=== PATIENT | female | born 2000 | race Caucasian/White ===

== ENCOUNTER 2019-04-17 14:30 | Emergency (ER) | payer OTHER ==
[~2019-04-17] VITALS: Ht 152.4 cm; Wt 54.4 kg
[2019-04-17] MEDS ORDERED: AMOXICILLIN-CLAVUL 875-125MG TABLET PO ONE (15:15)
[2019-04-17] MEDS ORDERED: RABIES IMMUNE GLOBULIN/PF 300 UNIT/ML 2 ML VIAL IM ONE (15:15)
[2019-04-17] MEDS ORDERED: RABIES VACCINE (PCEC)/PF 2.5 UNIT ML IM ONE ×2 (15:15)
[2019-04-17] MEDS ORDERED: AMOXICILLIN-CLAVUL 875-125MG TABLET ONE (15:15)
--- NOTE | 2019-04-17 15:17 | NUR ---
Pt states, she spoke to the Vet and the cat that bit her tested negetive for Rabbies and been told no rabbies vaccine needed.
--- NOTE | 2019-04-17 15:23 | NUR ---
Patient discharged to home in stable conditon. Written and verbal after care instructions given. Patient verbalizes understanding of instructions.
[2019-04-17 15:24] VITALS: BP 121/61
== END 2019-04-17 15:27 | disposition home or self-care (01) ==
LOC: ER 14:30
DX: S61.451A Open bite of right hand, initial encounter (principal); W55.01XA Bitten by cat, initial encounter; Y93.89 Activity, other specified; Y92.89 Other specified places as the place of occurrence of the external cause; Y99.8 Other external cause status
CPT/HCPCS: A4217; A4663

== ENCOUNTER 2019-12-18 15:52 | Inpatient (IN) | payer OTHER ==
[~2019-12-18] VITALS: Ht 152.4 cm; Wt 54.4 kg
[2019-12-18] MEDS ORDERED: ONDANSETRON 4 MG/2 ML VIAL IV ONE (16:00)
[2019-12-18] MEDS ORDERED: IV NORMAL SALINE 1000 ML BAG IV ONE ×2 (16:00→18:15)
[2019-12-18] MEDS ORDERED: ONDANSETRON 4 MG/2 ML VIAL ONE (16:06)
[2019-12-18] MEDS ORDERED: LORAZEPAM 2 MG/1 ML VIAL IV ONE ×2 (16:15→18:30)
[2019-12-18] MEDS ORDERED: LORAZEPAM 2 MG/1 ML VIAL ONE ×2 (16:15→18:32)
[2019-12-18 16:21] LABS: BASOPHILS % (AUTO) 0.3 % (0.0-2.0); EOSINOPHILS % (AUTO) 0.1 % (0.0-7.0); HEMATOCRIT 45.9 % (31.2-41.9); HEMOGLOBIN 15.6 g/dL (10.9-14.3); LYMPHOCYTES # (AUTO) 2.6 K/uL (20.0-40.0); MEAN CORPUSCULAR HEMOGLOBIN 30.6 uug (24.7-32.8); MEAN CORPUSCULAR HGB CONC 34 g/dL (32.3-35.6); MEAN CORPUSCULAR VOLUME 90.3 fL (75.5-95.3); NEUTROPHILS # (AUTO) 10.2 K/uL (1.8-8.9); NEUTROPHILS % (AUTO) 73.6 % (38.5-71.5); PLATELET COUNT (AUTO) 337 K/uL (179-408); RED BLOOD CELL COUNT(AUTO) 5.08 MIL/uL (3.63-4.92); WHITE BLOOD COUNT (AUTO) 13.9 K/uL (3.8-11.8)
[2019-12-18 16:27] LABS: CREATININE 1.3 mg/dL (0.6-1.3); POTASSIUM 3.8 mmol/L (3.5-5.1)
[2019-12-18 16:33] LABS: BILIRUBIN,DIRECT 0.2 mg/dL (0.0-0.2); BILIRUBIN,TOTAL 0.9 mg/dL (0.2-1.0)
[2019-12-18] MEDS ORDERED: LIDOCAINE VISCUS 2% 15 ML UDC MM ONE (17:30)
[2019-12-18] MEDS: SUCRALFATE 1 G/10 ML LIQUID UDC GT SCH ×3 (17:33→22:56)
[2019-12-18] MEDS ORDERED: PROCHLORPERAZINE EDISYLATE 10 MG/2 ML VIAL IV ONE (18:30)
[2019-12-18] MEDS ORDERED: diphenhydrAMINE 50 MG/1 ML VIAL IV ONE (18:30)
[2019-12-18] MEDS ORDERED: PROCHLORPERAZINE EDISYLATE 10 MG/2 ML VIAL ONE (18:31)
[2019-12-18] MEDS ORDERED: diphenhydrAMINE 50 MG/1 ML VIAL ONE (18:31)
[2019-12-18] MEDS ORDERED: ACETAMINOPHEN 325 MG TABLET PO PRN (19:15)
[2019-12-18] MEDS: IV D5/ 0.9% NACL 1,000 ML IV PRN (22:37)
[2019-12-18 22:44] VITALS: BP 105/61
[2019-12-18] MEDS: LORAZEPAM 2 MG/1 ML VIAL IV PRN (23:12)
[2019-12-18] MEDS: ONDANSETRON 4 MG/2 ML VIAL IV PRN (23:13)
[2019-12-19 05:10] VITALS: BP 102/61
[2019-12-19] MEDS: IV D5/ 0.9% NACL 1,000 ML IV PRN ×3 (06:06→22:08)
[2019-12-19] MEDS: ONDANSETRON 4 MG/2 ML VIAL IV PRN (06:16)
[2019-12-19 06:18] LABS: BASOPHILS % (AUTO) 0.5 % (0.0-2.0); EOSINOPHILS # (AUTO) 0.1 K/uL (0.0-0.7); EOSINOPHILS % (AUTO) 0.9 % (0.0-7.0); HEMATOCRIT 35.5 % (31.2-41.9); HEMOGLOBIN 12.2 g/dL (10.9-14.3); LYMPHOCYTES # (AUTO) 3.1 K/uL (20.0-40.0); LYMPHOCYTES % (AUTO) 30.6 % (20.5-51.5); MEAN CORPUSCULAR HEMOGLOBIN 31.3 uug (24.7-32.8); MEAN CORPUSCULAR HGB CONC 34 g/dL (32.3-35.6); MEAN CORPUSCULAR VOLUME 91.1 fL (75.5-95.3); MONOCYTES # (AUTO) 0.8 K/uL (2.0-10.0); MONOCYTES % (AUTO) 7.5 % (0.0-11.0); NEUTROPHILS # (AUTO) 6.1 K/uL (1.8-8.9); NEUTROPHILS % (AUTO) 60.5 % (38.5-71.5); PLATELET COUNT (AUTO) 202 K/uL (179-408); WHITE BLOOD COUNT (AUTO) 10.1 K/uL (3.8-11.8)
[2019-12-19 06:37] LABS: CREATININE 0.9 mg/dL (0.6-1.3); PHOSPHOROUS 3.1 mg/dL (2.5-4.9); POTASSIUM 3.7 mmol/L (3.5-5.1)
[2019-12-19 06:40] LABS: THYROID STIMULATING HORMONE 1.197 mIU/mL (0.358-3.740)
[2019-12-19] MEDS ORDERED: SUCRALFATE 1 G/10 ML LIQUID UDC GT SCH (07:30)
[2019-12-19] MEDS: SUCRALFATE 1 G TABLET PO SCH ×4 (07:44→20:47)
[2019-12-19] MEDS: PROCHLORPERAZINE EDISYLATE 10 MG/2 ML VIAL IV PRN ×2 (11:14→19:51)
[2019-12-19 11:38] VITALS: BP 124/74
[2019-12-19] MEDS: LORAZEPAM 2 MG/1 ML VIAL IV PRN ×2 (14:14→20:48)
[2019-12-19 15:44] VITALS: BP 147/84
[2019-12-19 17:15] VITALS: BP 130/74
[2019-12-19 20:00] VITALS: BP 138/87
[2019-12-20] MEDS: LORAZEPAM 2 MG/1 ML VIAL IV PRN (01:58)
[2019-12-20 04:00] VITALS: BP 134/86
[2019-12-20] MEDS: PROCHLORPERAZINE EDISYLATE 10 MG/2 ML VIAL IV PRN (04:40)
[2019-12-20] MEDS: IV D5/ 0.9% NACL 1,000 ML IV PRN (06:03)
[2019-12-20] MEDS: SUCRALFATE 1 G TABLET PO SCH ×2 (07:49→11:08)
[2019-12-20] MEDS: ONDANSETRON 4 MG/2 ML VIAL IV PRN (08:53)
[2019-12-20 11:51] VITALS: BP 120/67
[2019-12-20] MEDS ORDERED: PANT40TA2 PO (11:57)
== END 2019-12-20 12:43 | disposition home or self-care (01) | DRG 395 ==
LOC: ER 15:54 → MEDSURG3 22:17
DX: R11.15 Cyclical vomiting syndrome unrelated to migraine (principal); K21.9 Gastro-esophageal reflux disease without esophagitis; N28.9 Disorder of kidney and ureter, unspecified; E83.52 Hypercalcemia; D72.829 Elevated white blood cell count, unspecified
CPT/HCPCS: 36415; 83690; 83735; 84100; 84443; 85025; A4663; G0378; J0780; J1200; J2060; J2405; J3490; J7030; J7042

== ENCOUNTER 2020-02-29 17:25 | Emergency (ER) | payer OTHER ==
[~2020-02-29] VITALS: Ht 154.9 cm; Wt 49.9 kg
[~2020-02-29 17:25] MED LIST: PANT40TA2 PO
[2020-02-29] MEDS ORDERED: IV NORMAL SALINE 1000 ML BAG IV ONE (17:45)
[2020-02-29] MEDS ORDERED: HYDROMORPHONE 1 MG/1 ML DISP.SYRIN IV ONE (17:45)
[2020-02-29] MEDS ORDERED: ONDANSETRON 4 MG/2 ML VIAL IV ONE ×2 (17:45→19:00)
[2020-02-29] MEDS ORDERED: HYDROMORPHONE 1 MG/1 ML DISP.SYRIN ONE (17:53)
[2020-02-29] MEDS ORDERED: ONDANSETRON 4 MG/2 ML VIAL ONE ×2 (17:53→19:00)
[2020-02-29 18:01] LABS: BASOPHILS % (AUTO) 0.3 % (0.0-2.0); EOSINOPHILS % (AUTO) 0.1 % (0.0-7.0); HEMATOCRIT 43.6 % (31.2-41.9); HEMOGLOBIN 14.9 g/dL (10.9-14.3); LYMPHOCYTES # (AUTO) 2.5 K/uL (20.0-40.0); LYMPHOCYTES % (AUTO) 18.1 % (20.5-51.5); MEAN CORPUSCULAR HEMOGLOBIN 31.2 uug (24.7-32.8); MEAN CORPUSCULAR HGB CONC 34 g/dL (32.3-35.6); MEAN CORPUSCULAR VOLUME 90.9 fL (75.5-95.3); MONOCYTES # (AUTO) 0.8 K/uL (2.0-10.0); MONOCYTES % (AUTO) 5.6 % (0.0-11.0); NEUTROPHILS # (AUTO) 10.4 K/uL (1.8-8.9); NEUTROPHILS % (AUTO) 75.9 % (38.5-71.5); PLATELET COUNT (AUTO) 279 K/uL (179-408); WHITE BLOOD COUNT (AUTO) 13.8 K/uL (3.8-11.8)
[2020-02-29 18:03] LABS: CARBON DIOXIDE 24 mmol/L (21-32); CHLORIDE 102 mmol/L (98-107); CREATININE 0.9 mg/dL (0.6-1.3); GLUCOSE 116 mg/dL (74-106); POTASSIUM 3.8 mmol/L (3.5-5.1); UREA NITROGEN, BLOOD 20 mg/dL (7-18)
[2020-02-29 18:09] LABS: ALANINE AMINOTRANSFERASE 19 U/L (14-59); ALKALINE PHOSPHATASE 71 U/L (50-136); ASPARTATE AMINOTRANSFERASE 18 U/L (15-37); BILIRUBIN,DIRECT 0.2 mg/dL (0.0-0.2); BILIRUBIN,TOTAL 1.1 mg/dL (0.2-1.0); LIPASE 95 U/L (73-393); TOTAL PROTEIN, SERUM 8.6 g/dL (6.4-8.2)
[2020-02-29] MEDS ORDERED: PANTOPRAZOLE SODIUM 40 MG VIAL IV ONE (18:15)
[2020-02-29] MEDS ORDERED: PANTOPRAZOLE SODIUM 40 MG VIAL ONE (18:16)
[2020-02-29 19:11] VITALS: BP 144/82
[2020-03-01] MEDS ORDERED: MEDR150D7 IM (09:29)
[2020-03-05] MEDS ORDERED: METR500T PO (11:10)
[2020-03-05] MEDS ORDERED: ACID1TAB4 PO (11:10)
[2020-03-05] MEDS ORDERED: CIPR-262 PO (11:10)
== END 2020-02-29 19:24 | disposition home or self-care (01) ==
LOC: ER 17:25
DX: R11.15 Cyclical vomiting syndrome unrelated to migraine (principal); K58.9 Irritable bowel syndrome, unspecified; K21.9 Gastro-esophageal reflux disease without esophagitis
CPT/HCPCS: 36415; 80048; 80076; 83690; 84702; 85025; 96361; 96374; 96375; 96376; 99284; C9113; J1170; J2405 ×2; A4663; J7030

== ENCOUNTER 2020-03-01 02:11 | Inpatient (IN) | payer OTHER ==
[~2020-03-01] VITALS: Ht 152.4 cm; Wt 54.9 kg
--- NOTE | 2020-03-01 02:30 | NUR ---
Patient ambulated with stable gait. Speech is clear, speaks in complete sentences. No acute neuro deficits noted. Patient came for c/o non-radiating mid-abdominal pain and n/v. Patient was just seen earlier, and was d/c home with an Rx that she failed to fill. Respiratory even and unlabored, no cough no sob. No cardiovascular distress noted, denies any cp, or palpitations. Denies any gu distress, no pyuria, hematuria, or increased frequency. Patient does report having a long history of cannabis use by "dabbing". "It essentially is smoking THC concentrate per patient." She states that she has quit smoking cannabis x3 months now and has not smoked since. Patient report having occasional relief by taking "hot showers".
[2020-03-01] MEDS ORDERED: ONDANSETRON 4 MG/2 ML VIAL ONE (02:36)
[2020-03-01] MEDS ORDERED: PANTOPRAZOLE SODIUM 40 MG VIAL ONE (02:36)
[2020-03-01] MEDS ORDERED: IV NORMAL SALINE 1000 ML BAG IV ONE ×2 (02:45→04:00)
[2020-03-01] MEDS ORDERED: ONDANSETRON 4 MG/2 ML VIAL IV ONE (02:45)
[2020-03-01] MEDS ORDERED: PANTOPRAZOLE SODIUM 40 MG VIAL IV ONE (02:45)
[2020-03-01 02:47] LABS: BASOPHILS # (AUTO) 0.1 K/uL (0.0-8.0); BASOPHILS % (AUTO) 0.6 % (0.0-2.0); EOSINOPHILS # (AUTO) 0.2 K/uL (0.0-0.7); EOSINOPHILS % (AUTO) 1.3 % (0.0-7.0); HEMATOCRIT 41.7 % (31.2-41.9); HEMOGLOBIN 14.3 g/dL (10.9-14.3); LYMPHOCYTES # (AUTO) 3.7 K/uL (20.0-40.0); LYMPHOCYTES % (AUTO) 26.8 % (20.5-51.5); MEAN CORPUSCULAR HGB CONC 34 g/dL (32.3-35.6); MEAN CORPUSCULAR VOLUME 90.4 fL (75.5-95.3); MONOCYTES # (AUTO) 0.9 K/uL (2.0-10.0); MONOCYTES % (AUTO) 6.8 % (0.0-11.0); NEUTROPHILS % (AUTO) 64.5 % (38.5-71.5); PLATELET COUNT (AUTO) 268 K/uL (179-408); RED BLOOD CELL COUNT(AUTO) 4.61 MIL/uL (3.63-4.92)
[2020-03-01 02:50] LABS: CREATININE 1.1 mg/dL (0.6-1.3); POTASSIUM 3.7 mmol/L (3.5-5.1)
[2020-03-01 02:56] LABS: BILIRUBIN,DIRECT 0.2 mg/dL (0.0-0.2); TOTAL PROTEIN, SERUM 7.9 g/dL (6.4-8.2)
[2020-03-01] MEDS ORDERED: MORPHINE SULFATE 4 MG/1 ML DISP.SYRIN IV ONE (04:00)
[2020-03-01] MEDS ORDERED: METOCLOPRAMIDE HCL 10 MG/2 ML VIAL IV ONE (04:00)
[2020-03-01] MEDS ORDERED: diphenhydrAMINE 50 MG/1 ML VIAL IV ONE (04:00)
[2020-03-01] MEDS ORDERED: diphenhydrAMINE 50 MG/1 ML VIAL ONE (04:03)
[2020-03-01] MEDS ORDERED: MORPHINE SULFATE 4 MG/1 ML DISP.SYRIN ONE (04:04)
[2020-03-01] MEDS ORDERED: METOCLOPRAMIDE HCL 10 MG/2 ML VIAL ONE (04:04)
--- NOTE | 2020-03-01 04:15 | NUR ---
COVID SWAB SENT TO LAB, lab stated that barrel bander will be able to metal pickling equipment operator specimen in about an hour and a half.
--- NOTE | 2020-03-01 05:02 | NUR ---
Patient in bed VSS, NAD will continue to monitor as the COVID results are pending.
--- NOTE | 2020-03-01 06:17 | NUR ---
Santos Johnson, [facility] has been paged awaiting call back. Lab states that the snack bar cashier had just picked up the specimen at this time and needs to be transported back to [facility] for processing.
--- NOTE | 2020-03-01 06:40 | NUR ---
Report given to ENE Sellers. Awaiting for [facility] provider for admission. Will endorse to day shift POCKET CLOSER. Pending COVID results as well.
--- NOTE | 2020-03-01 07:00 | NUR ---
Report given to ENE Burris for continuity of care.
--- NOTE | 2020-03-01 07:22 | NUR ---
1st contact with patient: AOX4, calm & breathing easily, resting on gurney with eyes closed , pending accepting MD/IMMIGRATION CASE MANAGER for admission to medical surgical floor, room 330. Safety and comfort measures maintained.
--- NOTE | 2020-03-01 09:00 | NUR ---
ADMITTED FROM HOME VIA ER A 20 YO FEMALE WITH C/O ABDOMINAL PAIN , N/V WITH ADM DX ACUTE PANCREATITIS AND LEUKOCYTOSIS. NO SIGNS OF DISTRESS. INITIAL ADM ASSESSMENT INITIATED, JEAN GRIFFITH IN AND EXAMINED PATIENT WITH ORDERS. CONTINUE MED/SURG OBSERVATION
[2020-03-01 09:28] VITALS: BP 123/69
[2020-03-01] MEDS ORDERED: MEDR150D7 IM (09:29)
[2020-03-01] MEDS ORDERED: MAGNESIUM HYDROXIDE 30 ML LIQUID UDC PO PRN (09:45)
[2020-03-01] MEDS ORDERED: ACETAMINOPHEN 325 MG TABLET PO PRN (09:45)
[2020-03-01] MEDS ORDERED: Z GUARD REMEDY PASTE 57 GM TUBE TOP PRN (09:45)
[2020-03-01] MEDS ORDERED: LORAZEPAM 2 MG/1 ML VIAL IV PRN (09:45)
[2020-03-01] MEDS ORDERED: ZOLPIDEM 5 MG TABLET PO PRN (09:45)
[2020-03-01] MEDS ORDERED: INSULIN REGULAR, HUMAN 300 UNIT/3 ML VIAL SQ PRN (10:00)
[2020-03-01] MEDS ORDERED: DEXTROSE 50% 50 ML DISP.SYRIN IV PRN (10:00)
[2020-03-01] MEDS: ONDANSETRON 4 MG/2 ML VIAL IV PRN ×2 (11:30→20:48)
[2020-03-01] MEDS: IV NS 1000 ML 1,000 ML IV PRN ×2 (11:31→17:21)
[2020-03-01] MEDS: THIAMINE HCL INJ 100 MG in IV DEXTROSE 5% 50 ML IV SCH (11:38)
[2020-03-01] MEDS: HYDROMORPHONE 1 MG/1 ML DISP.SYRIN IV PRN (11:39)
[2020-03-01] MEDS: BLOOD SUGAR DIAGNOSTIC 1 EACH STRIP VI SCH ×3 (11:51→23:49)
[2020-03-01 16:00] VITALS: BP 117/72
--- NOTE | 2020-03-01 18:01 | NUR ---
CONTINUE NPO AND IVF 125MLS/HR, CONTINUE PAIN MGT PRN. NO FURTHER NAUSEA AND VOMITING. AMBULATES WITHIN HER ROOM. FALL PRECAUTION ADVICED
--- NOTE | 2020-03-01 19:45 | NUR ---
Patient alert oriented, no sob no chest pain. Patient has episode of nausea, and abdominal pain, will medicate patient as ordered. Patient remain npo, cont to monitor blood sugar. cont to monitor.
[2020-03-01 20:12] VITALS: BP 116/69
[2020-03-01] MEDS: PANTOPRAZOLE SODIUM 40 MG VIAL IV SCH (20:40)
[2020-03-02] MEDS: HYDROMORPHONE 1 MG/1 ML DISP.SYRIN IV PRN ×3 (00:55→23:39)
[2020-03-02] MEDS: IV NS 1000 ML 1,000 ML IV PRN ×2 (01:06→08:48)
[2020-03-02 04:16] VITALS: BP 110/72
--- NOTE | 2020-03-02 04:30 | NUR ---
Patient asleep, cont on pain management due to abdominal pain. Patient has no further episode of nausea. Patient remain npo, cont to monitor.
[2020-03-02] MEDS: ONDANSETRON 4 MG/2 ML VIAL IV PRN ×4 (05:34→23:39)
[2020-03-02] MEDS: BLOOD SUGAR DIAGNOSTIC 1 EACH STRIP VI SCH ×4 (05:38→23:53)
[2020-03-02 07:22] LABS: BASOPHILS # (AUTO) 0.1 K/uL (0.0-8.0); BASOPHILS % (AUTO) 0.6 % (0.0-2.0); EOSINOPHILS # (AUTO) 0.3 K/uL (0.0-0.7); EOSINOPHILS % (AUTO) 3.2 % (0.0-7.0); HEMATOCRIT 39.1 % (31.2-41.9); HEMOGLOBIN 13.6 g/dL (10.9-14.3); LYMPHOCYTES # (AUTO) 4.2 K/uL (20.0-40.0); LYMPHOCYTES % (AUTO) 42.4 % (20.5-51.5); MEAN CORPUSCULAR HEMOGLOBIN 31.3 uug (24.7-32.8); MEAN CORPUSCULAR HGB CONC 35 g/dL (32.3-35.6); MEAN CORPUSCULAR VOLUME 89.6 fL (75.5-95.3); MONOCYTES # (AUTO) 0.6 K/uL (2.0-10.0); MONOCYTES % (AUTO) 6.2 % (0.0-11.0); NEUTROPHILS # (AUTO) 4.7 K/uL (1.8-8.9); NEUTROPHILS % (AUTO) 47.6 % (38.5-71.5); PLATELET COUNT (AUTO) 198 K/uL (179-408); RED BLOOD CELL COUNT(AUTO) 4.36 MIL/uL (3.63-4.92); WHITE BLOOD COUNT (AUTO) 9.9 K/uL (3.8-11.8)
[2020-03-02 07:26] LABS: BILIRUBIN,TOTAL 1.1 mg/dL (0.2-1.0); CREATININE 0.9 mg/dL (0.6-1.3); PHOSPHOROUS 3.4 mg/dL (2.5-4.9); POTASSIUM 3.2 mmol/L (3.5-5.1); TOTAL PROTEIN, SERUM 6.8 g/dL (6.4-8.2)
--- NOTE | 2020-03-02 08:30 | NUR ---
RECEIVED PATIENT AWAKE, ALERT IN BED, ORIENTED X 4. VSS. NO S/S OF SOB OR DISTRESS. ABLE TO AMBULATE TO THE RESTROOM. COMPLAINTS OF ABDOMINAL PAIN AND SLIGHT NAUSEA. DENIES VOMITING AT THIS TIME. PATIENT REMAINS NPO. IV ON L AC 20 G, FLUSHED AND PATENT. NS RUNNING AT 125 CC/HR. WILL CONTINUE TO MONITOR.
[2020-03-02] MEDS: PANTOPRAZOLE SODIUM 40 MG VIAL IV SCH ×2 (08:48→20:04)
--- NOTE | 2020-03-02 11:30 | NUR ---
BLOOD GLUCOSE CHECKED: 64. HYPOGLYCEMIC PROTOCOL INITIATED. PATIENT GIVEN APPLE JUICE. PATIENT REPORTS NAUSEA AFTER A SIP OF APPLE JUICE. MD NOTIFIED.
--- NOTE | 2020-03-02 11:45 | NUR ---
RECHECKED BLOOD GLUCOSE: 69. NS 1000 ML DISCONTINUED. D5NS STARTED INFUSING. DENIES DIZZINESS.
--- NOTE | 2020-03-02 12:00 | NUR ---
RECHECKED BLOOD GLUCOSE: 81. NOTIFIED OF BLOOD GLUCOSE WNL. PATIENT UNABLE TO TOLERATE CLEAR LIQUID WITHOUT FEELING NAUSEOUS. WILL CONTINUE TO MONITOR.
[2020-03-02 12:07] VITALS: BP 123/75
[2020-03-02] MEDS: THIAMINE HCL INJ 100 MG in IV DEXTROSE 5% 50 ML IV SCH (12:08)
[2020-03-02] MEDS: IV D5/ 0.9% NACL 1,000 ML IV PRN ×2 (12:40→23:00)
[2020-03-02] MEDS: POTASSIUM CHLORIDE 50 ML IV SCH ×4 (13:36→16:44)
--- NOTE | 2020-03-02 15:17 | NUR ---
MIDLINE INSERTION COMPLETED, PATIENT TOLERATED WELL
[2020-03-02 16:53] VITALS: BP 105/60
--- NOTE | 2020-03-02 17:50 | NUR ---
BLOOD GLUCOSE CHECK: 64 - HYPOGLYCEMIC PROTOCOL INITIATED. PATIENT VERBALIZES DIZZINESS AND NAUSEA. GIVEN ZOFRAN AND D50. WILL RECHECK BLOOD GLUCOSE IN 15 MINS.
--- NOTE | 2020-03-02 18:20 | NUR ---
BLOOD GLUCOSE RECHECK: 210. VERBALIZED IMPROVEMENT OF NAUSEA AND DIZZINESS.
--- NOTE | 2020-03-02 19:45 | NUR ---
Patient alert oriented, no sob no chest pain. Patient has no complain of pain at this time, no nausea no vomiting noted, r upper midline intact, patient unable to tolerate clear liquid diet, encourage to stop taking po fluids at this time, cont to monitor.
[2020-03-02 20:21] VITALS: BP 104/54
[2020-03-03] MEDS: IV D5/ 0.9% NACL 1,000 ML IV PRN ×3 (02:33→22:44)
[2020-03-03 05:20] VITALS: BP 112/80
--- NOTE | 2020-03-03 05:29 | NUR ---
Patient asleep but arousable, no sob no chest pain. Patient on cont pain management due abdominal pain. Patient also given zofran for episode of nausea. Patient blood sugar stable at this time. cont to monitor.
[2020-03-03 06:25] LABS: CREATININE 0.9 mg/dL (0.6-1.3); POTASSIUM 3.9 mmol/L (3.5-5.1)
[2020-03-03] MEDS: BLOOD SUGAR DIAGNOSTIC 1 EACH STRIP VI SCH ×4 (06:36→21:01)
--- NOTE | 2020-03-03 08:00 | NUR ---
PT alert and oriented x 4. Pt states she had x 2 loose yellow diarrhea. Pt is in no acute distress. Discussed plan of care with pt for nausea and vomiting with zofran. Pt c/o being nauseated will give Zofran for nausea as needed.
[2020-03-03] MEDS: PANTOPRAZOLE SODIUM 40 MG VIAL IV SCH ×2 (09:04→20:44)
[2020-03-03] MEDS: ONDANSETRON 4 MG/2 ML VIAL IV PRN ×2 (10:19→18:07)
[2020-03-03] MEDS: THIAMINE HCL INJ 100 MG in IV DEXTROSE 5% 50 ML IV SCH (12:17)
[2020-03-03 12:30] VITALS: BP 117/75
[2020-03-03] MEDS ORDERED: ERYTHROMYCIN LACTOBIONATE IV SCH (14:00)
[2020-03-03] MEDS ORDERED: METOCLOPRAMIDE HCL 10 MG/2 ML VIAL IV SCH (14:00)
[2020-03-03] MEDS ORDERED: NORMAL SALINE IV SCH (14:00)
[2020-03-03] MEDS: AZITHROMYCIN IV 250 MG in IV DEXTROSE 5% 250 ML IV SCH (15:01)
--- NOTE | 2020-03-03 18:17 | NUR ---
Pt started on clear liquid. Will monitor pt for n/v. Pt given zofran throughout shift for nausea. Midline intact on right brachial.
[2020-03-03 19:14] VITALS: BP 109/64
--- NOTE | 2020-03-03 20:00 | NUR ---
Received patient in bed, awake, alert, and verbally responsive. No s/s of acute distress. Pt on RA and denies SOB. Right upper arm midline patent and intact infusing ordered fluids. Pt c/o nausea and will administer medication per order. Safety precautions in place and will continue to monitor.
--- NOTE | 2020-03-03 20:30 | NUR ---
Per Karmen Chavez, CRYPTOLOGIC TECHNICIAN changed Accu check order to [facility]CHS at 2022
[2020-03-03] MEDS: METOCLOPRAMIDE HCL 10 MG/2 ML VIAL IV SCH (20:43)
[2020-03-03 20:52] VITALS: BP 117/55
[2020-03-04] MEDS ORDERED: INSULIN REGULAR, HUMAN 300 UNIT/3 ML VIAL SQ PRN (04:15)
[2020-03-04] MEDS ORDERED: DEXTROSE 50% 50 ML DISP.SYRIN IV PRN (04:15)
[2020-03-04] MEDS: ONDANSETRON 4 MG/2 ML VIAL IV PRN (05:26)
[2020-03-04 05:31] VITALS: BP 110/64
[2020-03-04] MEDS: BLOOD SUGAR DIAGNOSTIC 1 EACH STRIP VI SCH ×4 (06:34→21:43)
[2020-03-04] MEDS: IV D5/ 0.9% NACL 1,000 ML IV PRN (06:36)
--- NOTE | 2020-03-04 08:30 | NUR ---
RECEIVED PATIENT AWAKE, ALERT IN BED AND ORIENTED X 4. VSS. ON CLEAR LIQUID DIET, ABLE TO TOLERATE, STILL COMPLAINS OF MILD NAUSEA AT THIS TIME, DENIES EMESIS. ALSO DIARRHEA X 2. WILL MANAGE NAUSEA WITH ZOFRAN AND REGLAN. MIDLINE ON RIGHT UPPER ARM, FLUSHED AND PATENT. D5NS RUNNING ORDERED. WILL CONTINUE TO MONITOR.
[2020-03-04] MEDS: METOCLOPRAMIDE HCL 10 MG/2 ML VIAL IV SCH ×3 (08:53→17:11)
[2020-03-04] MEDS: PANTOPRAZOLE SODIUM 40 MG VIAL IV SCH ×2 (08:53→20:34)
[2020-03-04 11:36] VITALS: BP 115/67
[2020-03-04] MEDS: THIAMINE HCL INJ 100 MG in IV DEXTROSE 5% 50 ML IV SCH (11:40)
[2020-03-04] MEDS ORDERED: ONDANSETRON 4 MG/2 ML VIAL IV PRN (13:00)
--- NOTE | 2020-03-04 15:00 | NUR ---
RECEIVED PATIENT. AWAKE, ALERT & ORIENTED. VERY FRUSTRATED THAT DR. BUTTS HAS NOT BEEN HERE FOR GI CONSULT. EMOTIONAL SUPPORT.
[2020-03-04 16:00] VITALS: BP 113/64
[2020-03-04] MEDS: AZITHROMYCIN IV 250 MG in IV DEXTROSE 5% 250 ML IV SCH (17:11)
[2020-03-04] MEDS: ACIDOPHILUS/BULGARICUS CHEW TAB PO SCH ×2 (17:11→21:58)
[2020-03-04] MEDS: HYDROCODONE/APAP 5-325MG TABLET PO PRN ×2 (17:21→21:59)
--- NOTE | 2020-03-04 20:00 | NUR ---
RECEIVED PATIENT AWAKE IN BED. A/O X4. IVF INFUSING WELL TO RIGHT UPPER ARM, MID-LINE. VSS. DENIES ANY PAIN OR DISCOMFORT. DENIES ANY NAUSEA. CALL LIGHT IN REACH. ALL NEEDS ATTENDED. WILL CONTINUE TO MONITOR AND ASSESS.
[2020-03-04 20:57] VITALS: BP 115/76
[2020-03-05] MEDS: IV D5/ 0.9% NACL 1,000 ML IV PRN (02:27)
[2020-03-05] MEDS: BLOOD SUGAR DIAGNOSTIC 1 EACH STRIP VI SCH ×2 (02:40→06:37)
[2020-03-05] MEDS: ACIDOPHILUS/BULGARICUS CHEW TAB PO SCH (05:49)
[2020-03-05 06:21] VITALS: BP 110/64
--- NOTE | 2020-03-05 06:54 | NUR ---
PATIENT AWAKE, SLEPT WELL. BED ALARM ON. CALL LIGHT IN REACH. ALL NEEDS ATTENDED. WILL CONTINUE TO MONITOR AND ASSESS.
[2020-03-05] MEDS: PANTOPRAZOLE SODIUM 40 MG VIAL IV SCH (08:25)
[2020-03-05] MEDS: METOCLOPRAMIDE HCL 10 MG/2 ML VIAL IV SCH (08:25)
[2020-03-05 10:21] LABS: BASOPHILS # (AUTO) 0.1 K/uL (0.0-8.0); BASOPHILS % (AUTO) 0.7 % (0.0-2.0); EOSINOPHILS # (AUTO) 0.5 K/uL (0.0-0.7); EOSINOPHILS % (AUTO) 6.3 % (0.0-7.0); HEMATOCRIT 40.8 % (31.2-41.9); HEMOGLOBIN 14.2 g/dL (10.9-14.3); LYMPHOCYTES # (AUTO) 2.4 K/uL (20.0-40.0); LYMPHOCYTES % (AUTO) 30.4 % (20.5-51.5); MEAN CORPUSCULAR HEMOGLOBIN 31.3 uug (24.7-32.8); MEAN CORPUSCULAR HGB CONC 35 g/dL (32.3-35.6); MEAN CORPUSCULAR VOLUME 89.6 fL (75.5-95.3); MONOCYTES # (AUTO) 0.5 K/uL (2.0-10.0); MONOCYTES % (AUTO) 6.3 % (0.0-11.0); NEUTROPHILS # (AUTO) 4.5 K/uL (1.8-8.9); NEUTROPHILS % (AUTO) 56.3 % (38.5-71.5); PLATELET COUNT (AUTO) 246 K/uL (179-408); RED BLOOD CELL COUNT(AUTO) 4.55 MIL/uL (3.63-4.92)
[2020-03-05 10:40] LABS: CREATININE 0.9 mg/dL (0.6-1.3); POTASSIUM 3.6 mmol/L (3.5-5.1)
[2020-03-05 10:44] LABS: MAGNESIUM 2.2 mg/dL (1.8-2.4); PHOSPHOROUS 4.2 mg/dL (2.5-4.9)
[2020-03-05 11:03] LABS: BILIRUBIN,DIRECT 0.3 mg/dL (0.0-0.2); BILIRUBIN,TOTAL 1.2 mg/dL (0.2-1.0); TOTAL PROTEIN, SERUM 7.5 g/dL (6.4-8.2)
[2020-03-05] MEDS ORDERED: CIPR-262 PO (11:10)
[2020-03-05] MEDS ORDERED: ACID1TAB4 PO (11:10)
[2020-03-05] MEDS ORDERED: METR500T PO (11:10)
[2020-03-05 11:43] VITALS: BP 120/64
--- NOTE | 2020-03-05 13:00 | NUR ---
Discharge instructions given to patient. Pt is to follow up with own GI DR as an outpatient. PT to f/u with flu vaccine with PMD. Pt is in no acute distress. Right brachial mid line taken out.
[2020-03-05] MEDS ORDERED: AZITHROMYCIN 250 MG TABLET PO SCH (15:00)
== END 2020-03-05 12:50 | disposition home or self-care (01) | DRG 440 ==
LOC: ER 02:13 → MEDSURG3 08:22
PROVIDERS: ADMIT Nurse Practitioner Acute Care; ATTEND Registered Nurse
PROC: 05HY33Z Insertion of Infusion Device into Upper Vein, Percutaneous Approach (ICD-10-PCS; principal; 2020-03-02)
DX: K85.90 Acute pancreatitis without necrosis or infection, unspecified (principal); K31.84 Gastroparesis; K21.9 Gastro-esophageal reflux disease without esophagitis; K58.0 Irritable bowel syndrome with diarrhea; Z87.891 Personal history of nicotine dependence; D72.829 Elevated white blood cell count, unspecified; R79.89 Other specified abnormal findings of blood chemistry; F12.11 Cannabis abuse, in remission; F10.20 Alcohol dependence, uncomplicated
CPT/HCPCS: 36415; 74150; 83605; 83690; 83735; 84100; 85025; A4663; C9113; G0378; J0456; J1170; J1200; J1364; J1815; J2060; J2270; J2405; J2765; J3411; J3480; J3490; J7030; J7042; J7050; J7060

== ENCOUNTER 2020-05-03 13:29 | Emergency (ER) | payer OTHER ==
[~2020-05-03] VITALS: Ht 152.4 cm; Wt 56.7 kg
[~2020-05-03 13:29] MED LIST changes: +ACID1TAB4 PO; +CIPR-262 PO; +MEDR150D7 IM; +METR500T PO
--- NOTE | 2020-05-03 14:10 | NUR ---
is aware re: "hard stick" for IV line.
[2020-05-03] MEDS ORDERED: HYDROMORPHONE 1 MG/1 ML DISP.SYRIN IM ONE (14:15)
[2020-05-03] MEDS ORDERED: ONDANSETRON 4 MG/2 ML VIAL IM ONE (14:15)
[2020-05-03] MEDS ORDERED: ONDANSETRON 4 MG/2 ML VIAL ONE ×3 (14:22→17:12)
[2020-05-03] MEDS ORDERED: HYDROMORPHONE 1 MG/1 ML DISP.SYRIN ONE ×2 (14:22→15:32)
[2020-05-03] MEDS ORDERED: HYDROMORPHONE 2 MG/1 ML DISP.SYRIN ONE ×2 (14:25→17:12)
[2020-05-03] MEDS: ONDANSETRON 4 MG/2 ML VIAL IV ONE ×2 (14:31→15:30)
[2020-05-03] MEDS: IV NORMAL SALINE 1000 ML BAG IV ONE ×3 (14:31→15:00)
[2020-05-03 15:07] LABS: CARBON DIOXIDE 22 mmol/L (21-32); CHLORIDE 106 mmol/L (98-107); GLUCOSE 130 mg/dL (74-106); POTASSIUM 4.1 mmol/L (3.5-5.1); UREA NITROGEN, BLOOD 13 mg/dL (7-18)
[2020-05-03 15:13] LABS: ALANINE AMINOTRANSFERASE 26 U/L (14-59); ALKALINE PHOSPHATASE 74 U/L (50-136); ASPARTATE AMINOTRANSFERASE 16 U/L (15-37); BILIRUBIN,DIRECT 0.2 mg/dL (0.0-0.2); BILIRUBIN,TOTAL 0.8 mg/dL (0.2-1.0); LIPASE 82 U/L (73-393); TOTAL PROTEIN, SERUM 8.8 g/dL (6.4-8.2)
[2020-05-03 15:15] LABS: BASOPHILS % (AUTO) 0.2 % (0.0-2.0); EOSINOPHILS # (AUTO) 0.1 K/uL (0.0-0.7); EOSINOPHILS % (AUTO) 0.6 % (0.0-7.0); HEMATOCRIT 47.2 % (31.2-41.9); HEMOGLOBIN 15.9 g/dL (10.9-14.3); LYMPHOCYTES # (AUTO) 1.8 K/uL (20.0-40.0); LYMPHOCYTES % (AUTO) 10.8 % (20.5-51.5); MEAN CORPUSCULAR HEMOGLOBIN 30.9 uug (24.7-32.8); MEAN CORPUSCULAR HGB CONC 34 g/dL (32.3-35.6); MEAN CORPUSCULAR VOLUME 92.1 fL (75.5-95.3); MONOCYTES # (AUTO) 0.6 K/uL (2.0-10.0); MONOCYTES % (AUTO) 3.6 % (0.0-11.0); NEUTROPHILS # (AUTO) 14.1 K/uL (1.8-8.9); NEUTROPHILS % (AUTO) 84.8 % (38.5-71.5); PLATELET COUNT (AUTO) 302 K/uL (179-408); RED BLOOD CELL COUNT(AUTO) 5.13 MIL/uL (3.63-4.92); WHITE BLOOD COUNT (AUTO) 16.6 K/uL (3.8-11.8)
[2020-05-03] MEDS: HYDROMORPHONE 1 MG/1 ML DISP.SYRIN IV ONE ×2 (15:20→15:30)
--- NOTE | 2020-05-03 15:29 | NUR ---
chief of field operations Dee was able to start IV line@ right antecubital g 22 angiocatheter. MD is aware. PIC line RN is coming after 1700. MD was updated accordingly.
--- NOTE | 2020-05-03 16:18 | NUR ---
Patient is resting comfortably on gurney with eyes closed. No vomiting or retching seen@the moment.
[2020-05-03] MEDS ORDERED: HYDROMORPHONE 1 MG/1 ML DISP.SYRIN IV ONE (17:00)
[2020-05-03] MEDS ORDERED: ONDANSETRON 4 MG/2 ML VIAL IV ONE (17:00)
--- NOTE | 2020-05-03 17:53 | NUR ---
IV removed. Catheter intact and site benign. Pressure and 4x4 gauze applied to site. No bleeding noted. Patient discharged to home in stable condition. Written and verbal after care instructions given. Patient verbalizes understanding of instructions. Stressed follow up or return to ER for worsening s/s.
--- NOTE | 2020-05-03 17:53 | NUR ---
PICC line nurse was cancelled by Dr Gómez.
== END 2020-05-03 17:53 | disposition home or self-care (01) ==
LOC: ER 13:29
DX: R10.13 Epigastric pain (principal); R11.2 Nausea with vomiting, unspecified; K58.9 Irritable bowel syndrome, unspecified; K21.9 Gastro-esophageal reflux disease without esophagitis; Z86.69 Personal history of other diseases of the nervous system and sense organs; Z79.899 Other long term (current) drug therapy; Z20.828 Contact with and (suspected) exposure to other viral communicable diseases
CPT/HCPCS: 80048; 80076; 83690; 84702; 85025; 87426; 96361; 96372; 96374; 96375; 96376; 99285; J1170 ×3; J2405 ×3; U0003; 36415; A4663

== ENCOUNTER 2020-05-16 10:03 | Emergency (ER) | payer OTHER ==
[~2020-05-16] VITALS: Ht 152.4 cm; Wt 56.7 kg
--- NOTE | 2020-05-16 10:38 | NUR ---
MD@bedside, medical screening exam in progress, pending MD orders@this time
[2020-05-16] MEDS ORDERED: MORPHINE SULFATE 2 MG/1 ML DISP.SYRIN IV ONE (10:45)
[2020-05-16] MEDS ORDERED: IV NORMAL SALINE 1000 ML BAG IV ONE (10:45)
[2020-05-16] MEDS ORDERED: ONDANSETRON 4 MG/2 ML VIAL IV ONE (10:45)
[2020-05-16] MEDS ORDERED: ONDANSETRON 4 MG/2 ML VIAL ONE (10:48)
[2020-05-16] MEDS ORDERED: MORPHINE SULFATE 4 MG/1 ML DISP.SYRIN ONE (10:48)
--- NOTE | 2020-05-16 10:52 | NUR ---
Lab mortgage [email or web address] drawing blood
[2020-05-16 11:12] LABS: BASOPHILS # (AUTO) 0.1 K/uL (0.0-8.0); BASOPHILS % (AUTO) 0.5 % (0.0-2.0); EOSINOPHILS # (AUTO) 0.3 K/uL (0.0-0.7); EOSINOPHILS % (AUTO) 2.2 % (0.0-7.0); HEMATOCRIT 45.5 % (31.2-41.9); HEMOGLOBIN 15.5 g/dL (10.9-14.3); LYMPHOCYTES # (AUTO) 2.5 K/uL (20.0-40.0); LYMPHOCYTES % (AUTO) 20.7 % (20.5-51.5); MEAN CORPUSCULAR HEMOGLOBIN 31.7 uug (24.7-32.8); MEAN CORPUSCULAR HGB CONC 34 g/dL (32.3-35.6); MEAN CORPUSCULAR VOLUME 92.9 fL (75.5-95.3); MONOCYTES # (AUTO) 0.4 K/uL (2.0-10.0); MONOCYTES % (AUTO) 3.8 % (0.0-11.0); NEUTROPHILS # (AUTO) 8.6 K/uL (1.8-8.9); NEUTROPHILS % (AUTO) 72.8 % (38.5-71.5); PLATELET COUNT (AUTO) 266 K/uL (179-408); WHITE BLOOD COUNT (AUTO) 11.9 K/uL (3.8-11.8)
[2020-05-16 11:15] LABS: ALANINE AMINOTRANSFERASE 22 U/L (14-59); ALKALINE PHOSPHATASE 68 U/L (50-136); ASPARTATE AMINOTRANSFERASE 13 U/L (15-37); BILIRUBIN,DIRECT 0.2 mg/dL (0.0-0.2); BILIRUBIN,TOTAL 0.8 mg/dL (0.2-1.0); CARBON DIOXIDE 21 mmol/L (21-32); CHLORIDE 104 mmol/L (98-107); CREATININE 1.1 mg/dL (0.6-1.3); GLUCOSE 160 mg/dL (74-106); LIPASE 77 U/L (73-393); POTASSIUM 3.9 mmol/L (3.5-5.1); TOTAL PROTEIN, SERUM 8.3 g/dL (6.4-8.2); UREA NITROGEN, BLOOD 15 mg/dL (7-18)
[2020-05-16] MEDS ORDERED: LORAZEPAM 0.5 MG TABLET ONE (12:13)
--- NOTE | 2020-05-16 12:14 | NUR ---
Patient passed po challenge.
[2020-05-16] MEDS ORDERED: LORAZEPAM 0.5 MG TABLET PO ONE (12:15)
--- NOTE | 2020-05-16 12:19 | NUR ---
IV removed. Catheter intact and site benign. Pressure and 4x4 gauze applied to site. No bleeding noted. Patient discharged to home in stable condition with brisk steady gait. Written and verbal after care instructions given to patient. Patient verbalized understanding and compliance of instructions. Stressed follow up with her primary doctor and GI doctor or [facility] GI doctor referral with Dr Stein or return to ER for worsening s/s. No vomiting episodes seen or retching noted after IV morphine was given earlier.
== END 2020-05-16 12:25 | disposition home or self-care (01) ==
LOC: ER 10:03
DX: R10.13 Epigastric pain (principal); R11.2 Nausea with vomiting, unspecified; K58.9 Irritable bowel syndrome, unspecified; K21.9 Gastro-esophageal reflux disease without esophagitis; Z86.69 Personal history of other diseases of the nervous system and sense organs; Z79.899 Other long term (current) drug therapy
CPT/HCPCS: 80048; 80076; 83690; 84702; 85025; 96361; 96374; 96375; 99284; J2270; J2405; 36415; A4663; J7030